=== PATIENT | female | born 1980 | race African-American/Black ===

== ENCOUNTER 2016-06-13 20:28 | Emergency (ER) | payer OTHER ==
[2016-06-13 20:32] VITALS: BP 122/88; PULSE 110; TEMP 97.9; BMI 27.4
[2016-06-13] MEDS ORDERED: IBUPROFEN 400 MG TABLET (FP) PO ONE ×2 (20:50→20:55)
[2016-06-13] MEDS ORDERED: DIPHTH,PERTUSS(ACELL),TET 0.5 ML DISP.SYRIN IM ONE (20:50)
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
== END 2016-06-13 21:00 | disposition home or self-care (01) ==
LOC: JERFT 20:28 → JER 20:28 → JERFT 21:00
PROC: 3E0234Z Introduction of Serum, Toxoid and Vaccine into Muscle, Percutaneous Approach (ICD-10-PCS; principal; 2016-06-13)
DX: S39.012A Strain of muscle, fascia and tendon of lower back, initial encounter (principal); S20.111A Abrasion of breast, right breast, initial encounter; Y04.2XXA Assault by strike against or bumped into by another person, initial encounter; Y93.F9 Activity, other caregiving; Y92.230 Patient room in hospital as the place of occurrence of the external cause; Y99.0 Civilian activity done for income or pay; Y07.9 Unspecified perpetrator of maltreatment and neglect
CPT/HCPCS: 90715; 99281-25

== ENCOUNTER 2017-04-14 16:26 | Emergency (ER) | payer OTHER ==
[2017-04-14 16:55] VITALS: BP 125/67; PULSE 102; TEMP 98.6; BMI 31.8
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
== END 2017-04-14 18:18 | disposition home or self-care (01) ==
LOC: JERFT 16:26
DX: Z20.828 Contact with and (suspected) exposure to other viral communicable diseases (principal); J10.1 Influenza due to other identified influenza virus with other respiratory manifestations
CPT/HCPCS: 87804; 99281-25

== ENCOUNTER 2021-02-26 17:12 | Emergency (ER) | payer OTHER ==
[2021-02-26 17:20] VITALS: BP 132/86; PULSE 94; TEMP 97; BMI 31.6
== END 2021-02-26 18:44 | disposition home or self-care (01) ==
LOC: JER 17:12
DX: J02.9 Acute pharyngitis, unspecified (principal); R09.81 Nasal congestion; M79.10 Myalgia, unspecified site
CPT/HCPCS: 87651; 87804; 87807; 99283-25; C9803; U0003; U0005

== ENCOUNTER 2022-01-28 20:41 | Emergency (ER) | payer OTHER ==
[2022-01-28 21:07] VITALS: TEMP 98.1; BMI 32.3
[2022-01-28 21:58] LABS: BASO % 0.7 % (0-2.0); EOS % 0.8 % (0-4.5); HEMATOCRIT 38.1 % (32.4-45.2); HEMOGLOBIN 12.7 GM/dL (10.7-15.3); LYMPH % 32.1 % (8-40); MCH 30.6 pg (25.7-33.7); MCHC 33.5 g/dl (32.0-36.0); MEAN CELL VOLUME 91.6 fl (80-96); MEAN PLT VOLUME 8.9 fl (7.5-11.1); MONO % 7.6 % (3.8-10.2); NEUT % 58.8 % (42.8-82.8); PLATELET COUNT 262 10^3/uL (134-434); RBC 4.16 M/mm3 (3.60-5.2); RDW 13.1 % (11.6-15.6); WHITE BLOOD COUNT 5.9 K/mm3 (4.0-10.0)
[2022-01-28 22:06] LABS: ALBUMIN 3.6 g/dl (3.4-5.0); CALCIUM 8.7 mg/dL (8.5-10.1)
[2022-01-28 22:09] LABS: CREATININE 1.1 mg/dL (0.55-1.3)
[2022-01-28 22:11] LABS: BILIRUBIN,TOTAL 0.6 mg/dL (0.2-1); TOT PROT 7.1 g/dl (6.4-8.2)
[2022-01-28 22:15] LABS: PROTHROMBIN TIME (PATIENT) 11.5 SEC (9.7-13.0)
[2022-01-28 22:17] LABS: ACTIVATED PTT 30.6 SECONDS (25.2-36.5)
[2022-01-29 00:38] VITALS: BP 147/100; PULSE 72; RESP 18
== END 2022-01-29 00:46 | disposition home or self-care (01) ==
LOC: JER 20:41
DX: R07.9 Chest pain, unspecified (principal); R06.02 Shortness of breath
CPT/HCPCS: 0241U-QW; 36415; 71046-TC-FY; 80053; 84484; 84703; 85025; 85610; 85730; 93005; 93010; 99284-25